=== PATIENT | female | born 1950 | race Two or more races ===

== ENCOUNTER → 2017-08-29 | Outpatient (CLI) | payer OTHER ==
[2017-08-29 11:07] LABS: CREATININE 0.6 mg/dL (0.6-1.0); GFR 99.7
[2017-08-29 11:07] LABS: BLOOD UREA NITROGEN 18 mg/dL (7-20)
[2017-08-29] MEDS: IOHEXOL 300 MG/ML 100ML VIAL. IV ×2 (11:19)
== END | disposition home or self-care (01) ==
LOC: CT 08:20
DX: E04.2 Nontoxic multinodular goiter (principal); J32.9 Chronic sinusitis, unspecified; I10 Essential (primary) hypertension; R22.0 Localized swelling, mass and lump, head
CPT/HCPCS: 36415; 70491; 82565; 84520; Q9967

== ENCOUNTER 2017-09-16 07:41 | Outpatient (CLI) | payer OTHER ==
[2017-09-16 08:12] LABS: ADD MAN DIFF? NO
[2017-09-16 08:14] LABS: BASO # 0.1 x10^3/uL (0.0-0.2); BASO % 1 % (0-3); EOS # 0.1 x10^3/uL (0.0-0.7); EOS % 1 % (0-3); HEMATOCRIT 44.1 % (36.0-47.0); HEMOGLOBIN 14.6 g/dL (12.0-15.5); LYMPH # 2.3 x10^3/uL (1.0-4.8); LYMPH % 27 % (24-48); MEAN CORPUSCULAR HEMOGLOBIN 30 pg (25-35); MEAN CORPUSCULAR HGB CONC 33 g/dL (31-37); MEAN CORPUSCULAR VOLUME 91 fL (79-100); MONO # 0.6 x10^3/uL (0.0-1.1); MONO % 7 % (0-9); NEUT # 5.6 x10^3uL (1.8-7.7); NEUT % 64 % (31-73); PLATELET COUNT 222 x10^3/uL (140-400); RED BLOOD COUNT 4.83 x10^6/uL (3.50-5.40); RED CELL DISTRIBUTION WIDTH 13.4 % (11.5-14.5); WHITE BLOOD COUNT 8.8 x10^3/uL (4.0-11.0)
[2017-09-16 08:24] LABS: INR 0.9 (0.8-1.1)
[2017-09-16] MEDS ORDERED: LIDOCAINE WITH 8.4% SOD BICARB 3 ML DISP.SYRIN. (09:46)
[2017-09-16] MEDS: LIDOCAINE WITH 8.4% SOD BICARB 3 ML DISP.SYRIN. IJ (10:12)
== END 2017-09-16 11:21 | disposition home or self-care (01) ==
LOC: INTRAD 07:41
DX: I96 Gangrene, not elsewhere classified (principal); E78.00 Pure hypercholesterolemia, unspecified; I10 Essential (primary) hypertension; E66.9 Obesity, unspecified; Z68.41 Body mass index [BMI] 40.0-44.9, adult; M19.90 Unspecified osteoarthritis, unspecified site; D64.9 Anemia, unspecified; Z96.653 Presence of artificial knee joint, bilateral
CPT/HCPCS: 10022; 36415; 76942; 85025; 85610; 87102; 87116

== ENCOUNTER → 2017-11-08 | Outpatient (CLI) | payer OTHER | END | disposition home or self-care (01) | LOC: MAMMO 13:05 | DX: Z12.31 Encounter for screening mammogram for malignant neoplasm of breast (principal) | CPT/HCPCS: 77063; 77067 ==

== ENCOUNTER → 2019-08-12 | Outpatient (CLI) | payer OTHER, MEDICARE ==
[2017-09-16 11:05] VITALS: BP 132/79
[~2019-08-12] MED LIST: ALEN70TA3 PO; AMLO5TAB10 PO; ATOR40TA59 PO; CARV6.25 PO; HYDR-2765 PO; LOSA-73 PO; MECL-75 PO; SENN8.8S5 PO
--- NOTE | 2019-08-12 12:07 | KCIC ---
CHEST AP ONLY Clinical Indication: +PPD Comparison: None. Findings: Frontal view chest was obtained. Heart size is enlarged. This may in part relate to technique. Over a vasculature is within normal limits. Calcified hilar nodes are present. Lungs are clear. No cavitary lesions or perihilar infiltrates. There is no pneumothorax. No pleural effusion is appreciated. No acute bone abnormality. IMPRESSION: No acute cardiopulmonary process. Electronically signed by: Ed Ball MD (08/12/2019 12:04 PM) [facility]
== END | disposition home or self-care (01) ==
LOC: KCIC 10:15
PROVIDERS: ATTEND Family Medicine
DX: R76.11 Nonspecific reaction to tuberculin skin test without active tuberculosis (principal); I51.7 Cardiomegaly
CPT/HCPCS: 71045